=== PATIENT | female | born 1980 | race American Indian/Alaskan Native ===

== ENCOUNTER 2018-11-08 09:37 | Emergency (ER) | payer MEDICAID, OTHER ==
--- NOTE | 2018-11-08 10:45 | Emergency Department Report ---
ED ENT HPI - General Chief complaint: Earache Stated complaint: LEFT SIDE FACE SWOLLEN Time Seen by Provider: 11/08/18 10:36 Source: patient Mode of arrival: Ambulatory Limitations: No Limitations - History of Present Illness MD complaint: ear pain -: Sudden Location: L ear Severity: moderate Quality: dull Consistency: constant Worsens with: none Associated Symptoms: discharge from ear. denies: cough, gum swelling, sore throat, tinnitus - Related Data Previous Rx's Medication Instructions Recorded Last Taken Type Ibuprofen [Motrin 800 MG tab] 800 mg PO Q8H PRN #30 tablet 01/18/12/19/15 22:00 Rx Acetaminophen with Codeine 1 tab PO Q6HR #15 tab 12/20/15 Unknown Rx [Acetaminophen-Codeine #4 TAB] Ciprofloxacin HCl [Cipro] 500 mg PO BID #28 tablet 11/08/18 Unknown Rx Ciprofloxacin HCl/Dexameth 4 drops OS BID #1 bottle 11/08/18 Unknown Rx [Ciprodex Otic Suspension] Allergies Allergy/AdvReac Type Severity Reaction Status Date / Time morphine Allergy Itching Verified 11/08/18 09:38 ED Dental HPI - General Chief complaint: Earache Stated complaint: LEFT SIDE FACE SWOLLEN Time Seen by Provider: 11/08/18 10:36 Source: patient Mode of arrival: Ambulatory Limitations: No Limitations - Related Data Previous Rx's Medication Instructions Recorded Last Taken Type Ibuprofen [Motrin 800 MG tab] 800 mg PO Q8H PRN #30 tablet 01/18/12/19/15 22:00 Rx Acetaminophen with Codeine 1 tab PO Q6HR #15 tab 12/20/15 Unknown Rx [Acetaminophen-Codeine #4 TAB] Ciprofloxacin HCl [Cipro] 500 mg PO BID #28 tablet 11/08/18 Unknown Rx Ciprofloxacin HCl/Dexameth 4 drops OS BID #1 bottle 11/08/18 Unknown Rx [Ciprodex Otic Suspension] Allergies Allergy/AdvReac Type Severity Reaction Status Date / Time morphine Allergy Itching Verified 11/08/18 09:38 ED Review of Systems ROS: Stated complaint: LEFT SIDE FACE SWOLLEN Other details as noted in HPI Constitutional: denies: chills, fever Eyes: denies: eye pain, eye discharge, vision change ENT: ear pain. denies: throat pain Respiratory: denies: cough, shortness of breath, wheezing Cardiovascular: denies: chest pain, palpitations Endocrine: no symptoms reported Gastrointestinal: denies: abdominal pain, nausea, diarrhea Genitourinary: denies: urgency, dysuria, discharge Musculoskeletal: denies: back pain, joint swelling, arthralgia Skin: denies: rash, lesions Neurological: denies: headache, weakness, paresthesias Psychiatric: denies: anxiety, depression Hematological/Lymphatic: denies: easy bleeding, easy bruising ED Past Medical Hx - Past Medical History Previous Medical History?: No - Surgical History Past Surgical History?: No - Social History Smoking Status: Never Smoker Substance Use Type: None - Medications Home Medications: Home Medications Medication Instructions Recorded Confirmed Last Taken Type Ibuprofen [Motrin 800 MG tab] 800 mg PO Q8H PRN #30 tablet 01/18/15 12/20/15 12/19/15 22:00 Rx Acetaminophen with Codeine 1 tab PO Q6HR #15 tab 12/20/15 Unknown Rx [Acetaminophen-Codeine #4 TAB] Ciprofloxacin HCl [Cipro] 500 mg PO BID #28 tablet 11/08/18 Unknown Rx Ciprofloxacin HCl/Dexameth 4 drops OS BID #1 bottle 11/08/18 Unknown Rx [Ciprodex Otic Suspension] ED Physical Exam - General Limitations: No Limitations General appearance: alert, in no apparent distress - Head Head exam: Present: atraumatic, normocephalic - Eye Eye exam: Present: normal appearance, PERRL Pupils: Present: normal accommodation - ENT ENT exam: Present: normal orophraynx, mucous membranes dry, mucous membranes moist, other (left ear pain and swelling with discharge tenderness with palpation. normal mastoids. ) - Neck Neck exam: Present: normal inspection. Absent: meningismus, lymphadenopathy - Respiratory Respiratory exam: Present: normal lung sounds bilaterally. Absent: respiratory distress - Cardiovascular Cardiovascular Exam: Present: regular rate, normal rhythm. Absent: systolic murmur, diastolic murmur, rubs, gallop - GI/Abdominal GI/Abdominal exam: Present: soft, normal bowel sounds - Extremities Exam Extremities exam: Present: normal inspection - Back Exam Back exam: Present: normal inspection - Neurological Exam Neurological exam: Present: alert, oriented X3 - Psychiatric Psychiatric exam: Present: normal affect, normal mood - Skin Skin exam: Present: warm, dry, intact, normal color. Absent: rash ED Course Vital Signs 11/08/18 09:42 Temperature 97.9 F Pulse Rate 66 Respiratory 16 Rate Blood Pressure 137/80 O2 Sat by Pulse 99 Oximetry Critical care attestation.: If time is entered above; I have spent that time in minutes in the direct care of this critically ill patient, excluding procedure time. ED Disposition Clinical Impression: Otitis externa Disposition: DC-01 TO HOME OR SELFCARE Is pt being admited?: No Does the pt Need Aspirin: No Condition: Stable Instructions: Otitis Externa (ED) Prescriptions: Ciprofloxacin HCl/Dexameth [Ciprodex Otic Suspension] 4 drops OS BID #1 bottle Ciprofloxacin HCl [Cipro] 500 mg PO BID #28 tablet Referrals: ZOILA DAVIS MD [Primary Care Provider] - 3-5 Days
== END 2018-11-08 11:19 | disposition home or self-care (01) ==
LOC: ED 09:37
CPT/HCPCS: 99282

== ENCOUNTER 2020-08-22 11:53 | Emergency (ER) | payer SELFPAY ==
[2020-08-22 12:18] VITALS: BP 124/65
--- NOTE | 2020-08-22 12:24 | Emergency Department Report ---
ED Rash HPI - HPI Chief Complaint: Skin Rash Stated Complaint: BODY RASH Time Seen by Provider: 08/22/20 12:09 Duration: 5 Days Location: Chest, Other (bilateral breast) Rash Symptoms: Yes Itching, No Facial Swelling, No Tongue/Oral Swelling, No Breathing Difficulties, No Choking Sensation, No Wheezing/Dyspnea, No Peeling, No Blistering, No Fever, No Lightheaded, No Malaise, No Myalgias Severity: mild Other History: This is a 40-year-old female nontoxic well in appearance with no signs of distress presents to the ED with complaint of bilateral below breast itching and rash. Patient denies any swelling, pus, or drainage. Patient denies any other symptoms. Denies any fever, chills, headache, nausea, vomiting, chest pain or SOB. Denies any other complaints. ED Review of Systems ROS: Stated complaint: BODY RASH Other details as noted in HPI Comment: All other systems reviewed and negative Constitutional: denies: chills, fever Eyes: denies: eye pain, eye discharge, vision change ENT: denies: ear pain, throat pain Respiratory: denies: cough, shortness of breath, wheezing Cardiovascular: denies: chest pain, palpitations Endocrine: no symptoms reported Gastrointestinal: denies: abdominal pain, nausea, diarrhea Genitourinary: denies: urgency, dysuria, discharge Musculoskeletal: denies: back pain, joint swelling, arthralgia Skin: rash. denies: lesions Neurological: denies: headache, weakness, paresthesias Psychiatric: denies: anxiety, depression Hematological/Lymphatic: denies: easy bleeding, easy bruising ED Past Medical Hx - Past Medical History Previous Medical History?: No - Surgical History Past Surgical History?: No - Social History Smoking Status: Never Smoker Substance Use Type: None - Medications Home Medications: Home Medications Medication Instructions Recorded Confirmed Last Taken Type Ibuprofen [Motrin 800 MG tab] 800 mg PO Q8H PRN #30 tablet 01/18/15 12/20/15 12/19/15 22:00 Rx Acetaminophen with Codeine 1 tab PO Q6HR #15 tab 12/20/15 Unknown Rx [Acetaminophen-Codeine #4 TAB] Ciprofloxacin HCl [Cipro] 500 mg PO BID #28 tablet 11/08/18 Unknown Rx Ciprofloxacin HCl/Dexameth 4 drops OS BID #1 bottle 11/08/18 Unknown Rx [Ciprodex Otic Suspension] Clotrimazole 1% [Lotrimin 1%] 15 gm TP BID #1 tube 08/22/20 Unknown Rx Rash Exam - Exam General: Vital signs noted. No distress. Alert and acting appropriately. HEENT: No Periorbital Edema, No Conjuctival Injection, No Chemosis, No Perioral Edema, No Tongue Edema, No Uvular Edema, No Compromised Airway, No Drooling Lungs: Yes Good Air Exchange (Normal Breath Sounds), No Wheezes, No Ronchi, No Stridor, No Cough, No Labored Respirations, No Retractions, No Use of Accessory Muscles, No Other Abnormal Lung Sounds Heart: Yes Regular, No Murmur Skin: No Urticarial Rash, No Maculopapular Rash, No Morbilliform rash, No Bulla(e), No Excoriations, No Weeping, No Tenderness, No Erythema, No Edema, No Encrustations, No Other (circular erythematous with some hyperpigmented and scaling patch to bilateral lower breast area) Other: Positive: Abdomen Normal, Neurologic Normal, Musculoskeletal Normal ED Course Vital Signs 08/22/20 12:12 Temperature 98.1 F Pulse Rate 70 Respiratory 20 Rate Blood Pressure 124/65 O2 Sat by Pulse 97 Oximetry - Reevaluation(s) Reevaluation #1: 08/22/20 12:34 Patient is speaking in full sentences with no signs of distress noted. ED Medical Decision Making - Medical Decision Making Patient was instructed to Follow-up with a primary care doctor in 3-5 days or if symptoms worsen and continue return to emergency room as soon as possible. At time of discharge, the patient does not seem toxic or ill in appearance. No acute signs of distress noted. Patient agrees to discharge treatment plan of care. No further questions noted by the patient. Critical care attestation.: If time is entered above; I have spent that time in minutes in the direct care of this critically ill patient, excluding procedure time. ED Disposition Clinical Impression: Tinea corporis Disposition: DC-01 TO HOME OR SELFCARE Is pt being admited?: No Does the pt Need Aspirin: No Condition: Stable Instructions: Body Ringworm Additional Instructions: Follow-up with a primary care doctor in 3-5 days or if symptoms worsen and continue return to emergency room as soon as possible. Prescriptions: Clotrimazole 1% [Lotrimin 1%] 15 gm TP BID #1 tube Referrals: PRIMARY CAREMD [Primary Care Provider] - 3-5 Days ZAKIYA DURAN MD [Staff Physician] - 3-5 Days [facility] [Provider Group] - 3-5 Days Forms: Work/School Release Form(ED) Time of Disposition: 12:39
== END 2020-08-22 13:19 | disposition home or self-care (01) ==
LOC: ED 11:53
DX: B35.4 Tinea corporis (principal); Z79.899 Other long term (current) drug therapy; Z88.6 Allergy status to analgesic agent
CPT/HCPCS: 99281

== ENCOUNTER 2021-06-08 15:25 | Emergency (ER) | payer SELFPAY ==
--- NOTE | 2021-06-08 15:59 | Emergency Department Report ---
ED Extremity Problem HPI - General Chief complaint: Extremity Injury, Upper Stated complaint: RT WRIST PAIN Time Seen by Provider: 06/08/21 15:33 Source: patient Mode of arrival: Ambulatory Limitations: No Limitations - History of Present Illness Initial comments: 41-year-old female presents to the ER today with complaints of pain to her right wrist and the base of her left thumb. Patient states that her pain started a few days ago. Yesterday was mild to start but has since gotten worse. She states that she is unable to move her thumb because of increasing pain in that area. She denies any particular injury. She does admit to repetitive hand use at her job. She reports some swelling around the wrist and thumb area. She states that she has not taken anything for pain. She states that she is right- hand dominant. She reports no additional symptoms at this time MD Complaint: joint swelling, joint paint -: days(s) (few days ago ) - Related Data Previous Rx's Medication Instructions Recorded Last Taken Type Ciprofloxacin HCl [Cipro] 500 mg PO BID #28 tablet 11/08/18 Unknown Rx Ciprofloxacin HCl/Dexameth 4 drops OS BID #1 bottle 11/08/18 Unknown Rx [Ciprodex Otic Suspension] Clotrimazole 1% [Lotrimin 1%] 15 gm TP BID #1 tube 08/22/20 Unknown Rx Ketorolac [Toradol] 10 mg PO Q6H PRN #20 tablet 06/08/21 Unknown Rx Tramadol HCl/Acetaminophen 1 each PO Q6HR #12 tablet 06/08/21 Unknown Rx [Ultracet Tablet] Allergies Allergy/AdvReac Type Severity Reaction Status Date / Time morphine Allergy Itching Verified 06/08/21 15:26 ED Review of Systems ROS: Stated complaint: RT WRIST PAIN Other details as noted in HPI Comment: All other systems reviewed and negative Constitutional: denies: chills, fever Eyes: denies: eye pain, eye discharge, vision change ENT: denies: ear pain, throat pain Respiratory: denies: cough, shortness of breath, SOB with exertion, SOB at rest, wheezing Musculoskeletal: joint swelling, arthralgia Skin: denies: rash, lesions, change in color, change in hair/nails, pruritus Neurological: denies: headache, weakness, numbness, paresthesias, confusion, abnormal gait, vertigo Psychiatric: denies: anxiety, depression, auditory hallucinations, visual hallucinations, homicidal thoughts, suicidal thoughts Hematological/Lymphatic: denies: easy bleeding, easy bruising, swollen glands ED Past Medical Hx - Past Medical History Previous Medical History?: No - Surgical History Past Surgical History?: No - Social History Smoking Status: Never Smoker Substance Use Type: None - Medications Home Medications: Home Medications Medication Instructions Recorded Confirmed Last Taken Type Ciprofloxacin HCl [Cipro] 500 mg PO BID #28 tablet 11/08/18 Unknown Rx Ciprofloxacin HCl/Dexameth 4 drops OS BID #1 bottle 11/08/18 Unknown Rx [Ciprodex Otic Suspension] Clotrimazole 1% [Lotrimin 1%] 15 gm TP BID #1 tube 08/22/20 Unknown Rx Ketorolac [Toradol] 10 mg PO Q6H PRN #20 tablet 06/08/21 Unknown Rx Tramadol HCl/Acetaminophen 1 each PO Q6HR #12 tablet 06/08/21 Unknown Rx [Ultracet Tablet] ED Physical Exam - General Limitations: No Limitations General appearance: alert, in no apparent distress - Head Head exam: Present: atraumatic, normocephalic, normal inspection - Eye Eye exam: Present: normal appearance, PERRL, EOMI Pupils: Present: normal accommodation - ENT ENT exam: Present: normal exam, mucous membranes moist, TM's normal bilaterally - Neck Neck exam: Present: normal inspection, full ROM - Respiratory Respiratory exam: Present: normal lung sounds bilaterally. Absent: respiratory distress, wheezes, rales, rhonchi - Cardiovascular Cardiovascular Exam: Present: regular rate, normal rhythm, normal heart sounds - Expanded Upper Extremity Exam Right Hand Wrist exam: Present: tenderness (Moderate tenderness to palpation at the base of the right thumb dorsally, and over the radial aspect of the right wrist). Absent: full ROM (Ulnar and radial deviation of the right hand reduced due to increased pain over the thumb and radial aspect of the wrist), swelling, abrasion, laceration, ecchymosis, deformity, crepidus, dislocation, erythema, amputation, nail avulsion, subungual hematoma Neuro motor exam: Present: wrist extension intact, thumb IP flexion intact, fingers 2-5 abduction intact. Absent: thumb opposition intact (Right thumb, reduced due to pain), thumb adduction intact (Reduced due to pain) Neurosensory exam: Present: radial nerve intact, ulnar nerve intact, median nerve intact Vascular: Present: normal capillary refill, radial pulse (Normal). Absent: vascular compromise - Neurological Exam Neurological exam: Present: alert, oriented X3, CN II-XII intact, normal gait - Psychiatric Psychiatric exam: Present: normal affect, normal mood - Skin Skin exam: Present: intact ED Course Vital Signs 06/08/21 15:31 Temperature 98.9 F Pulse Rate 67 Respiratory 18 Rate Blood Pressure 130/70 O2 Sat by Pulse 99 Oximetry ED Medical Decision Making - Medical Decision Making Patient's history and physical exam is concerning for de Quervain's tendinitis. Exam does not suggest septic joint, cellulitis, acute arterial occlusion or any other emergent conditions warranting any testing, or emergent specialist consult at this time. Discussed suspected diagnosis with patient. She will be placed in a thumb spica Velcro splint and given medication to help with pain and inflammation and given referral to trading specialist if her symptoms does not get better. Patient expressed understanding of all instructions and agree with plan. Patient was stable at time of discharge Critical care attestation.: If time is entered above; I have spent that time in minutes in the direct care of this critically ill patient, excluding procedure time. ED Disposition Clinical Impression: Tendinitis, de Quervain's Disposition: 01 HOME / SELF CARE / HOMELESS Is pt being admited?: No Does the pt Need Aspirin: No Condition: Stable Instructions: De Quervain's Tenosynovitis Additional Instructions: Use the thumb spica splint as discussed and take the Toradol and the tramadol as prescribed to help with pain. Recommend using ice and limited use of the hand over the next 2 to 3 days. Most importantly follow-up with trading specialist listed on discharge instructions if symptoms persist after 1 to 2 weeks. Return to the ER if your symptoms worsens in any way Prescriptions: Ketorolac [Toradol] 10 mg PO Q6H PRN #20 tablet PRN Reason: Pain Tramadol HCl/Acetaminophen [Ultracet Tablet] 1 each PO Q6HR #12 tablet Referrals: MIKAYLA RAMIREZ MD [Staff Physician] - 3-5 Days Forms: Work/School Release Form(ED) Time of Disposition: 16:11 Print Language: AZERI
[2021-06-08] MEDS ORDERED: KETOROLAC 60 MG/2 ML INJ IM ONE (16:14)
[2021-06-08] MEDS ORDERED: DEXAMETHASONE 4 MG TAB PO ONE (16:14)
[2021-06-08 16:50] VITALS: BP 122/81
== END 2021-06-08 16:49 | disposition home or self-care (01) ==
LOC: ED 15:25
DX: M77.9 Enthesopathy, unspecified (principal); M65.4 Radial styloid tenosynovitis [de Quervain]; Z88.5 Allergy status to narcotic agent; Z79.899 Other long term (current) drug therapy
CPT/HCPCS: 29125; 96372; 99283; J1885; J8540; 99282

== ENCOUNTER 2022-03-20 13:06 | Emergency (ER) | payer SELFPAY ==
[2022-03-20] MEDS ORDERED: KETOROLAC 30 MG/1 ML INJ IV ONE (15:47)
--- NOTE | 2022-03-20 15:52 | Emergency Department Report ---
HPI - General Chief Complaint: Chest Pain PUI?: No - HPI HPI: 42-year-old female with history of obesity brought in by EMS for evaluation of chest pain. Patient reports her chest pain began 3 days ago. Pain is a sharp pressure-like pain which was initially over her left side but she states when she takes deep breaths he feels the pain "in my right lung." She denies any falls or chest wall trauma no shortness of breath or difficulty breathing. She denies any cough or URI symptoms. No pain or swelling in her calves. No recent surgeries or prolonged immobilization. She states she was lifting boxes for her daughter who moved away to college 1 day ago but affirms again that her chest pain began 2 days prior to this. She says she has taken antacids as well as aspirin at home and this has not helped her symptoms. Pain currently 6 out of 10. \\She denies any prior history of similar symptoms in the past ED Past Medical Hx - Past Medical History Previous Medical History?: No - Family History Family history: no significant - Social History Smoking Status: Never Smoker Substance Use Type: None - Medications Home Medications: Home Medications Medication Instructions Recorded Confirmed Last Taken Type Ciprofloxacin HCl [Cipro] 500 mg PO BID #28 tablet 11/08/18 Unknown Rx Ciprofloxacin HCl/Dexameth 4 drops OS BID #1 bottle 11/08/18 Unknown Rx [Ciprodex Otic Suspension] Clotrimazole 1% [Lotrimin 1%] 15 gm TP BID #1 tube 08/22/20 Unknown Rx Ketorolac [Toradol] 10 mg PO Q6H PRN #20 tablet 06/08/21 Unknown Rx Tramadol HCl/Acetaminophen 1 each PO Q6HR #12 tablet 06/08/21 Unknown Rx [Ultracet Tablet] methocarbamoL [Methocarbamol] 750 mg PO QID PRN #28 03/21/22 Unknown Rx ED Review of Systems ROS: Stated complaint: CHEST PAINS Other details as noted in HPI Comment: All other systems reviewed and negative Constitutional: no symptoms reported Eyes: denies: eye pain, eye discharge, vision change ENT: denies: ear pain, throat pain, hearing loss, epistaxis Respiratory: no symptoms reported, see HPI Cardiovascular: chest pain. denies: palpitations, dyspnea on exertion, orthopnea, edema, syncope, paroxysmal nocturnal dyspnea, other Endocrine: denies: see HPI, excessive sweating, flushing, intolerance to cold, intolerance to heat, increased hunger, increased thirst, increased urine, unexplained weight gain, unexplained weight loss, other Gastrointestinal: denies: abdominal pain, nausea, vomiting, diarrhea, constipation, hematemesis, melena, hematochezia Genitourinary: denies: urgency, dysuria, frequency, hematuria, discharge, abnormal menses, dyspareunia Musculoskeletal: denies: as per HPI, back pain, joint swelling, arthralgia, myalgia Skin: denies: rash, lesions, change in color, change in hair/nails, pruritus Neurological: denies: headache, weakness, numbness, paresthesias, confusion, abnormal gait, vertigo, other Psychiatric: denies: anxiety, depression, auditory hallucinations, visual hallucinations, homicidal thoughts, suicidal thoughts Hematological/Lymphatic: denies: easy bleeding, easy bruising, swollen glands Physical Exam - Physical Exam Vital Signs: Vital Signs 03/20/22 13:20 Temperature 97.5 F L Pulse Rate 91 H Respiratory 16 Rate Blood Pressure 100/64 [Left] O2 Sat by Pulse 99 Oximetry General: Gen: pt is well appearing, no acute distress, observed using using personal cellular telephone, no acute distress HEENT: Normocephalic atraumatic pupils equally round and reactive to light extraocular muscles intact sclera anicteric Neck: Full range of motion, no midline spinal tenderness palpation, no JVD, no carotid bruits, no nuchal rigidity CVS: S1-S2 regular rate and rhythm with no gallops rubs or murmurs, but reproduction of left anterior chest wall with light palpation, no crepitus Pulmonary: Clear to auscultation bilaterally, no wheezes rales or rhonchi Abdomen: Soft nondistended nontender no guarding or rebound tenderness, no palpable deformities or step-offs, normal active bowel sounds, no hepatosplenomegaly, no pulsatile masses : Deferred Extremities: No cyanosis no clubbing no edema, intact distal peripheral pulses, Integumentary: Skin normal, no petechia no purpura no abscess no lacerations no evidence of trauma no evidence of infection Neuro: Patient is awake alert and oriented to person place time situation, m entating well, cranial nerves II through XII intact, no focal neurodeficits, sensation grossly tact Psych: Calm cooperative, mood affect normal ED Course Vital Signs 03/20/22 13:20 Temperature 97.5 F L Pulse Rate 91 H Respiratory 16 Rate Blood Pressure 100/64 [Left] O2 Sat by Pulse 99 Oximetry - Reevaluation(s) Reevaluation #1: 03/20/22 23:44 pt reassessed; she is comfortable and well appearing; she is observed talking to her family members in the room; nad ED Medical Decision Making - Lab Data Result diagrams: 03/20/22 19:27 - EKG Data -: EKG Interpreted by Me EKG shows normal: sinus rhythm Rate: normal - EKG Data When compared to previous EKG there are: no significant change Interpretation: no acute changes 03/20/22 16:09 EKG interpreted by me: Ventricular rate 64 bpm. P waves are present and proceed every QRS complex. Intervals normal. No ST segment depressions or elevations that are at least 1 mm or higher. Patient has isolated T wave inversions in lead III. No ectopic. No arrhythmia. Normal axis. Sinus rhythm. - Radiology Data Radiology results: report reviewed - Medical Decision Making 42-year-old obese female presents for evaluation of 3 days of left-sided chest pain. Vital signs stable. EKG grossly unremarkable. Serial cardiac enzymes normal. CTA chest negative for dissection or acute pulmonary embolism and any other acute life-threatening pathology found on diagnostic imaging. She was given analgesics here with good effect and resolution of her symptoms. I reassessed her multiple times and she remained comfortable and well-appearing and was never in any extremis. Patient's heart score is 1. No further emergent workup warranted at this time. Pt advised to follow up with her primary care doctor within 1-2 days for reevaluation. Prior to discharge, pt was given strict verbal and written return precautions. Critical care attestation.: If time is entered above; I have spent that time in minutes in the direct care of this critically ill patient, excluding procedure time. ED Disposition Clinical Impression: Chest pain Disposition: 01 HOME / SELF CARE / HOMELESS Is pt being admited?: No Does the pt Need Aspirin: No Condition: Stable Instructions: Nonspecific Chest Pain, Adult Additional Instructions: Please follow up with your primary care doctor this week for reassessment. Take ibuprofen as needed for pain. YOu may take methocarbamol for additional pain management if your symptoms are not improved by ibuprofen and/or acetaminophen alone. Return to the nearest emergency department soon as possible if you develop se mark worsening pain, dizziness, lightheadedness, shortness of breath or difficulty breathing, vomiting, or if any other new worrisome symptoms develop Prescriptions: methocarbamoL [Methocarbamol] 750 mg PO QID PRN #28 PRN Reason: Pain, Moderate (4-6) Referrals: PRIMARY CARE, [Primary Care Provider] - 3-5 Days
[2022-03-20 18:27] LABS: BUN/Creatinine Ratio TNR; Blood Urea Nitrogen TNR mg/dL (7-17)
[2022-03-20 18:28] LABS: Alanine Aminotransferase TNR units/L (7-56); Albumin TNR g/dL (3.9-5); Calcium TNR mg/dL (8.4-10.2); Hemolysis Index TNR
--- NOTE | 2022-03-20 19:42 | XRay Report ---
CHEST 1 VIEW 03/20/2022 6:35 PM INDICATION / CLINICAL INFORMATION: L sided chest pain. COMPARISON: None available. FINDINGS: SUPPORT DEVICES: None. HEART / MEDIASTINUM: No significant abnormality. LUNGS / PLEURA: No significant pulmonary or pleural abnormality. No pneumothorax. ADDITIONAL FINDINGS: No significant additional findings. IMPRESSION: 1. No acute findings. Signer Name: Miguel Nieves MD Signed: 03/20/2022 7:38 PM Workstation Name: [id number]
[2022-03-20 21:20] LABS: Alanine Aminotransferase 21 units/L (7-56); Albumin 4.2 g/dL (3.9-5); BUN/Creatinine Ratio 10; Blood Urea Nitrogen 8 mg/dL (7-17); Calcium 9.7 mg/dL (8.4-10.2); Hemolysis Index 88
[2022-03-20] MEDS ORDERED: SODIUM CHLORIDE 0.9% 1000 ML 1,000 ML IV ONE (21:36)
--- NOTE | 2022-03-20 23:34 | Cat Scan Report ---
CTA CHEST WITH CONTRAST INDICATION / CLINICAL INFORMATION: chest pain radiating to back 100ml of [id number]. TECHNIQUE: Axial CT images were obtained through the chest after injection of IV contrast. 3 plane ND P and/or 3D reconstructions were produced. All CT scans at this location are performed using CT dose reduction for ALARA by means of automated exposure control. COMPARISON: One view of the chest performed today. FINDINGS: PULMONARY EMBOLUS: None. THORACIC AORTA: No significant abnormality. HEART: No significant abnormality. CORONARY ARTERY CALCIFICATION: Absent -- None. MEDIASTINUM / EVAN: No significant abnormality. PLEURA: No pleural effusion. No pneumothorax. LUNGS: No acute air space or interstitial disease. ADDITIONAL FINDINGS: None. UPPER ABDOMEN: No acute findings. SKELETAL STRUCTURES: No significant osseous abnormality. IMPRESSION: No acute findings in the chest to explain the patient's pain. Signer Name: Adelso Houston MD Signed: 03/20/2022 11:30 PM Workstation Name: [id number]
[2022-03-21 00:48] VITALS: BP 118/66
--- NOTE | 2022-03-22 18:17 | Electrocardiograph Report ---
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
== END 2022-03-21 00:48 | disposition home or self-care (01) ==
LOC: ED 13:06
DX: R07.9 Chest pain, unspecified (principal)
CPT/HCPCS: 36415; 71045; 71275; 80053; 83880; 84484; 84703; 85379; 93005; 96361; 96374; 99284; J1885; J7030; Q9967